=== PATIENT | female | born 1935 | race Caucasian/White ===

== ENCOUNTER 2017-01-15 17:04 | Emergency (ER) | payer MEDICARE, OTHER ==
--- NOTE | 2017-01-15 17:37 | Emergency Department Record ---
History of Present Illness - General Chief complaint: Lower Extremity Pain Stated complaint: L HIP AND LEG PAIN Time Seen by Provider: 01/15/17 17:31 Source: Patient, Family (patient's daughter) Mode of Arrival: Ambulatory Limitations: No limitations - History of Present Illness Initial comments: 81 yo female presents to ED with a 5-hour history of confusion and difficultly with speaking this afternoon. Daughter at the bedside in unsure about the the exact time of symptoms, but received a confused text from the patient at 12:35. Patient reports that she has a headache, has been unable to sleep, and is now having difficulty with word finding and expression. Patient denies any focal weakness on examination. MD Complaint: Other Onset/Timin -: Hour(s) Location: Other History of Same: Yes (with previous medication reaction) Radiation: Distal Severity scale (1-10): 3 Quality: Aching Consistency: Intermittent Improves with: Nothing Worsens with: Nothing Associated Symptoms: Denies other symptoms - Related Data Home Medications Medication Instructions Recorded Confirmed Last Taken Desloratadine [Clarinex] 5 mg PO DAILY 03/07/14 01/15/17 02/15/16 Fluticasone Furoate [Veramyst] 10 gm NS DAILY 03/07/14 01/15/17 02/15/16 Gabapentin [Gabapentin] 1 tab PO TID 03/07/14 01/15/17 02/15/16 Glipizide/Metformin HCl 1 each PO TID 03/07/14 01/15/17 02/15/16 [Glipizide-Metformin 5-500 mg] Irbesartan/Hydrochlorothiazide 1 each PO DAILY 03/07/14 01/15/17 02/15/16 [Irbesartan-Hctz 150-12.5 mg Tb] Levothyroxine Sodium [Synthroid] 1 tab PO DAILY 03/07/14 01/15/17 02/15/16 Metformin HCl [Glucophage] 500 mg PO QPM 03/07/14 01/15/17 02/15/16 Omeprazole [Omeprazole] 1 tab PO QAM 03/07/14 01/15/17 02/15/16 Potassium Chloride [K-Tab ER] 10 meq PO TID 03/07/14 01/15/17 02/15/16 Simvastatin [Simvastatin] 1 tab PO QHS 05/09/1001/15/17 02/15/16 Folic Acid [Folic Acid] 1 mg PO DAILY 01/04/15 01/15/17 02/15/16 Multivit with Calcium,Iron,Min 1 each PO DAILY 01/04/15 01/15/17 02/15/16 [Multiple Vitamins For Women] Anastrozole [Arimidex] 1 mg PO DAILY 06/18/15 01/15/17 02/15/16 Calcium Carb & Citrate/Vit D3 1 each PO DAILY 11/03/15 01/15/17 02/15/16 [Calcium + D3 Er Tablet] Previous Rx's Medication Instructions Recorded Ondansetron [Zofran Odt] 4 mg SL .Q4-6H PRN #12 tab.rapdis 02/15/16 Allergies Allergy/AdvReac Type Severity Reaction Status Date / Time Penicillins Allergy Unknown DIFFICULTY Verified 01/15/17 17:20 BREATHING quinine Allergy Unknown RASH Verified 01/15/17 17:20 Sulfa (Sulfonamide Allergy Unknown RASH Verified 01/15/17 17:20 Antibiotics) Tetracyclines Allergy Unknown RASH Verified 01/15/17 17:20 Travel Screening - Travel/Exposure Within Last 30 Days Have you traveled within the last 30 days?: No Review of Systems Constitutional: Denies: Chills, Fever, Malaise, Night sweats Eyes: Denies: Eye discharge, Eye pain ENT: Denies: Congestion, Ear pain, Epistaxis Respiratory: Denies: Cough, Dyspnea Cardiovascular: Denies: Chest pain, Dyspnea on exertion Endocrine: Denies: Fatigue, Heat or cold intolerance Gastrointestinal: Denies: Abdominal pain, Nausea, Vomiting Genitourinary: Denies: Dysuria, Frequency, Hematuria, Incontinence Musculoskeletal: Denies: Arthralgia, Back pain, Gout, Joint swelling Skin: Denies: Bruising, Change in color Neurological: Reports: Confusion, Headache. Denies: Abnormal gait, Numbness, Seizure Psychiatric: Denies: Anxiety Hematological/Lymphatic: Denies: Anemia, Blood Clots Past Medical History - SOCIAL HISTORY Smoking Status: Former smoker Alcohol Use: None Drug Use: None - RESPIRATORY Hx Respiratory Disorders: Yes Comment:: chronic allergies - CARDIOVASCULAR Hx Cardio Disorders: Yes Hx Hypertension: Yes (on meds good control) - NEURO Hx Neuro Disorders: Yes Hx Dizziness: Yes (occass) Hx Headaches: Yes - GI Hx GI Disorders: Yes Hx Reflux: Yes Hx Nausea/Vomiting: Yes (occass) - Hx Genitourinary Disorders: Yes Hx UTI: Yes (hx) - ENDOCRINE Hx Endocrine Disorders: Yes - MUSCULOSKELETAL Hx Musculoskeletal Disorders: Yes Hx Arthritis: Yes - PSYCH Hx Psych Problems: Yes Hx Depression: Yes - HEMATOLOGY/ONCOLOGY Hx Hematology/Oncology Disorders: Yes Hx Anemia: Yes Hx Bruising: Yes 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 negative: Conjunctival injection, Periorbital swelling, Periorbital tenderness, Scleral icterus - ENT Ear exam: negative: Auricular hematoma, Auricular trauma Nasal Exam: negative: Active bleeding, Discharge, Dried blood, Foreign body Mouth exam: negative: Drooling, Laceration, Muffled voice, Tongue elevation - Neck Neck exam: Normal inspection. negative: Meningismus, Tenderness - Respiratory Respiratory exam: Normal lung sounds bilaterally. negative: Rales, Respiratory distress, Rhonchi, Stridor - Cardiovascular Cardiovascular Exam: Regular rate, Normal rhythm, Normal heart sounds - GI/Abdominal GI/Abdominal exam: Soft. negative: Rebound, Rigid, Tenderness - Rectal Rectal exam: Deferred - exam: Deferred - Extremities Extremities exam: Normal inspection, Full ROM. negative: Calf tenderness, Pedal edema, Tenderness - Back Back exam: Denies: CVA tenderness (R), CVA tenderness (L) - Neurological Neurological exam: Alert, CN II-XII intact, Normal gait, Oriented X3. negative : Motor sensory deficit - Psychiatric Psychiatric exam: Normal affect, Normal mood - Skin Skin exam: Normal color. negative: Abrasion Type of lesion: negative: abrasion Course Vital Signs 01/15/17 17:11 Temperature 98.1 F Pulse Rate 94 H Respiratory 20 Rate Blood Pressure 190/111 Pulse Ox 97 - Reevaluation(s) Reevaluation #1: 01/15/17 17:55 NIH: 2 at most for moderate-sever aphasia Patient is not a tPA candidated both on timing of onset as well as NIH stroke scale of <4. Labs and CT imaging ordered for evaluation. EKG: NSR 82 Normal axis, normal intervals, No acute ST-T wave changes Reevaluation #2: 01/15/17 18:29 CT Brain: Chronic sinusitis, no acute intra-cranial process is present. Will initiate transfer for Neurology evaluation. Reevaluation #3: 01/15/17 18:36 Labs reviewed, TSH and UA pending, labs are otherwise grossly unremarkable for an acute process. Reevaluation #4: 01/15/17 18:46 Case was discussed with Dr. Brizuela, agrees that the patient is not currently a tPA candidate. Will accept transfer for possible CVA and further neurological evaluation. Medical Decision Making - Lab Data Result diagrams: 01/15/17 17:46 01/15/17 17:46 Disposition Disposition: Transfer Clinical Impression: Cerebrovascular accident (CVA) Qualifiers: CVA mechanism: unspecified Qualified Code(s): I63.9 - Cerebral infarction, unspecified Disposition: Acute Care Hospital Transfer Transfer To: [facility] Reason For Transfer: Possible CVA Accepting Physician: Gelacio Time Discussed w/Accepting Physician: 18:48 Condition: (2) Stable Forms: Patient Portal Access
[2017-01-15 17:57] LABS: BASO % 0.2 % (0-6); EOS % 0.4 % (0-6); HEMATOCRIT 37.3 % (35.0-47.0); HEMOGLOBIN 12.8 gm/dl (11.6-16.0); LYMPH % 12.4 % (16-45); MEAN CELL VOLUME 81.1 fl (81-97); MEAN CORPUSCULAR HEMOGLOBIN 27.8 pg (27-33); MEAN CORPUSCULAR HGB CONC 34.3 g/dl (32-36); MEAN PLATELET VOLUME 9.3 fl (7.4-10.4); PLATELET COUNT 254 K/uL (130-400); RED CELL DISTRIBUTION WIDTH 13.5 % (11.5-14.5); WHITE BLOOD COUNT W/O DIFF 8.3 K/uL (4.2-12.2)
[2017-01-15 18:09] LABS: AMMONIA < 8.7 umol/L (9-30)
[2017-01-15 18:34] LABS: ALB/GLOB RATIO 1.6 (1.1-1.8); ALBUMIN 4.2 gm/dL (3.5-5.0); AST/SGOT 21 U/L (14-36); BLOOD UREA NITROGEN 7 mg/dL (7-17); CREATININE 0.6 mg/dL (0.52-1.04); EST GLOMERULAR FILTRATION RATE > 60 ml/min; GLUCOSE,RANDOM 119 mg/dL (70-110); TOTAL PROTEIN 6.8 gm/dL (6.3-8.2)
[2017-01-15 18:35] LABS: ALKALINE PHOSPHATASE 101 U/L (38-126); ALT/SGPT 34 U/L (9-52)
[2017-01-15 18:37] LABS: THYROID STIMULATING HORMONE 2.33 uIU/ml (0.465-4.68)
[2017-01-15] MEDS: ONDANSETRON HCL IV 4 MG/2 ML VIAL IVP ONE (18:37)
[2017-01-15] MEDS: ASPIRIN 81 MG CHEWABLE TABLET PO ONE (18:49)
--- NOTE | 2017-01-17 14:39 | CT SCAN REPORT ---
EXAM: CT SCAN OF THE HEAD HISTORY: PATIENT HAS NAUSEA AND HEADACHE. TECHNIQUE: Serial axial CT scan of the head was performed at 2.5 mm intervals from the base of the skull to the apex without the use of intravenous contrast. Sagittal and coronal reconstructions are provided. FINDINGS: There is mild to moderate parenchymal volume loss identified. There is no mass or mass effect. The white and white differentiation is within normal limits. There is no CT evidence of intra or extraaxial fluid collection to suggest bleeding. The bone windows demonstrate no CT evidence of a fracture or dislocation of the skull. Moderate mucosal thickening is noted within the inferior aspect of the left maxillary sinus suggesting chronic sinusitis. IMPRESSION: 1. PARENCHYMAL VOLUME LOSS IS NOTED WITHOUT CT EVIDENCE OF AN ACUTE INTRACRANIAL PROCESS. 2. MUCOSAL THICKENING WITHIN THE INFERIOR ASPECT OF THE LEFT MAXILLARY SINUS SUGGESTS CHRONIC SINUSITIS. CLINICAL CORRELATION IS RECOMMENDED. JOB NUMBER: [id number] MTDD
== END 2017-01-15 21:45 | disposition short-term general hospital (02) ==
LOC: ER 17:04
DX: I63.9 Cerebral infarction, unspecified (principal); R47.01 Aphasia; R11.0 Nausea; R29.702 NIHSS score 2; I10 Essential (primary) hypertension; Z87.891 Personal history of nicotine dependence
CPT/HCPCS: 99285 ×2; 96374; 82140; 85025; 80053; 84443; 70450; 93005; 93010; J2405

== ENCOUNTER 2017-01-21 19:12 | Emergency (ER) | payer MEDICARE, OTHER ==
[2017-01-21] MEDS ORDERED: 0.9 % SODIUM CHLORIDE 1,000 ML BAG IV ONE (20:05)
--- NOTE | 2017-01-21 20:05 | Emergency Department Record ---
History of Present Illness - General Chief Complaint: Dizziness Stated Complaint: DIZZY,NAUSEA Time Seen by Provider: 01/21/17 19:32 Source: Patient, Family Mode of Arrival: Ambulatory Limitations: No limitations - History of Present Illness Initial Comments: pt feels weak. she has nausea and diarrhea. she does not feel anything like she did when she was transferred recently for stroke like symptoms Onset/Timin -: Days(s) Timing: Gradual onset Description: Nausea Severity: Mild Worsens With: Exertion Associated Symptoms: Other - Joyce Coma Scale Eye Response: (4) Open spontaneously Motor Response: (6) Obeys commands Verbal Response: (5) Oriented Joyce Total: 15 - Related Data Home Medications Medication Instructions Recorded Confirmed Last Taken Desloratadine [Clarinex] 5 mg PO DAILY 03/07/14 01/21/17 02/15/16 Fluticasone Furoate [Veramyst] 10 gm NS DAILY 03/07/14 01/21/17 02/15/16 Gabapentin [Gabapentin] 1 tab PO TID 03/07/14 01/21/17 02/15/16 Glipizide/Metformin HCl 1 each PO TID 03/07/14 01/21/17 02/15/16 [Glipizide-Metformin 5-500 mg] Irbesartan/Hydrochlorothiazide 1 each PO DAILY 03/07/14 01/21/17 02/15/16 [Irbesartan-Hctz 150-12.5 mg Tb] Levothyroxine Sodium [Synthroid] 1 tab PO DAILY 03/07/14 01/21/17 02/15/16 Metformin HCl [Glucophage] 500 mg PO QPM 03/07/14 01/21/17 02/15/16 Omeprazole [Omeprazole] 1 tab PO QAM 03/07/14 01/21/17 02/15/16 Potassium Chloride [K-Tab ER] 10 meq PO TID 03/07/14 01/21/17 02/15/16 Simvastatin [Simvastatin] 1 tab PO QHS 03/07/14 01/21/17 02/15/16 Folic Acid [Folic Acid] 1 mg PO DAILY 01/04/15 01/21/17 02/15/16 Multivit with Calcium,Iron,Min 1 each PO DAILY 01/04/15 01/21/17 02/15/16 [Multiple Vitamins For Women] Anastrozole [Arimidex] 1 mg PO DAILY 06/18/15 01/21/17 02/15/16 Calcium Carb & Citrate/Vit D3 1 each PO DAILY 11/03/15 01/21/17 02/15/16 [Calcium + D3 Er Tablet] Hydrochlorothiazide [Hctz 12.5MG] 12.5 mg PO DAILY 01/21/17 01/21/17 Unknown Previous Rx's Medication Instructions Recorded Ondansetron [Zofran Odt] 4 mg SL .Q4-6H PRN #12 tab.rapdis 02/15/16 Allergies Allergy/AdvReac Type Severity Reaction Status Date / Time Penicillins Allergy Unknown DIFFICULTY Verified 01/15/17 17:20 BREATHING quinine Allergy Unknown RASH Verified 01/15/17 17:20 Sulfa (Sulfonamide Allergy Unknown RASH Verified 01/15/17 17:20 Antibiotics) Tetracyclines Allergy Unknown RASH Verified 01/15/17 17:20 Travel Screening - Travel/Exposure Within Last 30 Days Have you traveled within the last 30 days?: No Review of Systems Reviewed: No additional complaints except as noted below Constitutional: Reports: As per HPI. Denies: Chills, Fever, Malaise, Night sweats, Weakness, Weight change Eyes: Reports: As per HPI. Denies: Eye discharge, Eye pain, Photophobia, Vision change ENT: Reports: As per HPI. Denies: Congestion, Dental pain, Ear pain, Epistaxis , Hearing loss, Throat pain Respiratory: Reports: As per HPI. Denies: Cough, Dyspnea, Hemoptysis, Stridor, Wheezes Cardiovascular: Reports: As per HPI. Denies: Arrhythmia, Chest pain, Dyspnea on exertion, Edema, Murmurs, Orthopnea, Palpitations, Paroxysmal nocturnal dyspnea, Rheumatic Fever, Syncope Endocrine: Reports: As per HPI. Denies: Fatigue, Heat or cold intolerance, Polydipsia, Polyuria Gastrointestinal: Reports: As per HPI. Denies: Abdominal pain, Constipation, Diarrhea, Hematemesis, Hematochezia, Melena, Nausea, Vomiting Genitourinary: Reports: As per HPI. Denies: Abnormal menses, Discharge, Dyspareunia, Dysuria, Frequency, Hematuria, Incontinence, Retention, Urgency Musculoskeletal: Reports: As per HPI. Denies: Arthralgia, Back pain, Gout, Joint swelling, Myalgia, Neck pain Skin: Reports: As per HPI. Denies: Bruising, Change in color, Change in hair/ nails, Lesions, Pruritus, Rash Neurological: Reports: As per HPI. Denies: Abnormal gait, Confusion, Headache, Numbness, Paresthesias, Seizure, Tingling, Tremors, Vertigo, Weakness Psychiatric: Reports: As per HPI. Denies: Anxiety, Auditory hallucinations, Depression, Homicidal thoughts, Suicidal thoughts, Visual hallucinations Hematological/Lymphatic: Reports: As per HPI. Denies: Anemia, Blood Clots, Easy bleeding, Easy bruising, Swollen glands Past Medical History - SOCIAL HISTORY Smoking Status: Former smoker Alcohol Use: None Drug Use: None - RESPIRATORY Hx Respiratory Disorders: Yes Comment:: chronic allergies - CARDIOVASCULAR Hx Cardio Disorders: Yes Hx Hypertension: Yes (on meds good control) - NEURO Hx Neuro Disorders: Yes Hx Dizziness: Yes (occass) Hx Headaches: Yes - GI Hx GI Disorders: Yes Hx Reflux: Yes Hx Nausea/Vomiting: Yes (occass) - Hx Genitourinary Disorders: Yes Hx UTI: Yes (hx) - ENDOCRINE Hx Endocrine Disorders: Yes - MUSCULOSKELETAL Hx Musculoskeletal Disorders: Yes Hx Arthritis: Yes - PSYCH Hx Psych Problems: Yes Hx Depression: Yes - HEMATOLOGY/ONCOLOGY Hx Hematology/Oncology Disorders: Yes Hx Anemia: Yes Hx Bruising: Yes Hx Cancer: Yes (lymphoma non hodgkins breast cancer) Hx Chemotherapy: Yes (rituxin) Hx Blood Transfusions: Yes Family Medical History Any Significant Family History?: Yes Hx HTN: Father Physical Exam - General General Appearance: Alert, Oriented x3, Cooperative, Mild distress - Head Head exam: Normal inspection - Eye Eye exam: Normal appearance, PERRL, EOMI Pupils: Normal accommodation - ENT ENT exam: Normal exam, Mucous membranes moist, Normal external ear exam, Normal orophraynx Ear exam: Normal external inspection. negative: External canal tenderness Nasal Exam: Normal inspection. negative: Discharge, Sinus tenderness Mouth exam: Normal external inspection, Tongue normal Teeth exam: Normal inspection. negative: Dental caries Throat exam: Normal inspection. negative: Tonsillar erythema, Tonsillar exudate - Neck Neck exam: Normal inspection, Full ROM. negative: Tenderness - Respiratory Respiratory exam: Normal lung sounds bilaterally. negative: Respiratory distress - Cardiovascular Cardiovascular Exam: Regular rate, Normal rhythm, Normal heart sounds - GI/Abdominal GI/Abdominal exam: Soft, Normal bowel sounds. negative: Tenderness - Rectal Rectal exam: Deferred - exam: Deferred - Extremities Extremities exam: Normal inspection, Full ROM, Normal capillary refill. negative: Tenderness - Back Back exam: Reports: Normal inspection, Full ROM. Denies: Muscle spasm, Rash noted, Tenderness - Neurological Neurological exam: Alert, CN II-XII intact, Normal gait, Oriented X3 - Psychiatric Psychiatric exam: Normal affect, Normal mood - Skin Skin exam: Dry, Intact, Normal color, Warm Course Vital Signs 01/21/17 19:30 Temperature 98.4 F Pulse Rate [ 91 H Pulse Ox Probe] Respiratory 20 Rate Blood Pressure 208/94 [Left Arm] Pulse Ox 96 - Reevaluation(s) Reevaluation #1: 01/21/17 22:06 pt feels much better. family states she has done 180 degree turn about. Medical Decision Making - Lab Data Result diagrams: 01/21/17 19:30 01/21/17 19:30 Disposition Disposition: Discharge Clinical Impression: Hypokalemia, Weakness Diarrhea Qualifiers: Diarrhea type: unspecified type Qualified Code(s): R19.7 - Diarrhea, unspecified Disposition: Home, Self-Care Condition: (1) Good Instructions: Weakness (ED), Hypokalemia (ED), Acute Diarrhea (ED) Additional Instructions: follow up with family doctor tomorrow. return sooner if worse Forms: Patient Portal Access
[2017-01-21] MEDS ORDERED: ONDANSETRON HCL IV 4 MG/2 ML VIAL IVP ONE (20:10)
[2017-01-21 20:27] LABS: BASO % 0.2 % (0-6); EOS % 2.3 % (0-6); GRAN % 67.2 % (47-80); HEMATOCRIT 36.8 % (35.0-47.0); HEMOGLOBIN 12.8 gm/dl (11.6-16.0); LYMPH % 21.1 % (16-45); MEAN CELL VOLUME 81.6 fl (81-97); MEAN CORPUSCULAR HEMOGLOBIN 28.4 pg (27-33); MEAN CORPUSCULAR HGB CONC 34.8 g/dl (32-36); MEAN PLATELET VOLUME 9.5 fl (7.4-10.4); MONO % 9.2 % (0-9); PLATELET COUNT 271 K/uL (130-400); RED BLOOD COUNT 4.51 M/uL (3.80-5.40); RED CELL DISTRIBUTION WIDTH 13.6 % (11.5-14.5); WHITE BLOOD COUNT W/O DIFF 8.1 K/uL (4.2-12.2)
[2017-01-21 20:41] LABS: ANION GAP 8.9 (7-16); BLOOD UREA NITROGEN 7 mg/dL (7-17); CARBON DIOXIDE 27.1 mmol/L (22-30); CREATININE 0.7 mg/dL (0.52-1.04); EST GLOMERULAR FILTRATION RATE > 60 ml/min
[2017-01-21] MEDS ORDERED: CLONIDINE HCL 0.1 MG TABLET PO ONE (20:41)
[2017-01-21 20:42] LABS: ALB/GLOB RATIO 1.6 (1.1-1.8); ALBUMIN 4.2 gm/dL (3.5-5.0); ALKALINE PHOSPHATASE 91 U/L (38-126); ALT/SGPT 35 U/L (9-52); AST/SGOT 24 U/L (14-36); TOTAL PROTEIN 6.8 gm/dL (6.3-8.2)
[2017-01-21 20:44] LABS: GLUCOSE,RANDOM 141 mg/dL (70-110)
[2017-01-21 20:45] LABS: URINE APPEARANCE CLEAR; URINE BILIRUBIN NEGATIVE (NEGATIVE); URINE BLOOD TRACE-I (NEGATIVE); URINE COLOR YELLOW; URINE GLUCOSE (UA) NEGATIVE (NEGATIVE); URINE KETONE NEGATIVE (NEGATIVE); URINE LEUKOCYTE ESTERASE SMALL (NEGATIVE); URINE NITRITE NEGATIVE (NEGATIVE); URINE PROTEIN NEGATIVE (NEGATIVE); URINE UROBILINOGEN 0.2 E.U./dL (0.20 - 1.00)
[2017-01-21 20:45] LABS: BILIRUBIN,TOTAL 1.34 mg/dL (0.2-1.3)
[2017-01-21 21:04] LABS: URINE BACTERIA NONE SEEN; URINE EPITHELIAL CELLS 0 - 2 (FEW); URINE RBC 0 - 2 (NONE SEEN); URINE WBC 0 - 2 (0-2/hpf)
[2017-01-21] MEDS ORDERED: POTASSIUM CHLORIDE 20 MEQ TABLET PO ONE (21:18)
== END 2017-01-21 22:30 | disposition home or self-care (01) ==
LOC: ER 19:12
DX: E87.6 Hypokalemia (principal); R53.1 Weakness; R19.7 Diarrhea, unspecified; R11.0 Nausea; R42 Dizziness and giddiness; I10 Essential (primary) hypertension; Z87.891 Personal history of nicotine dependence
CPT/HCPCS: 80053; 81001; 83880; 84484; 85025; 96374; 99284; J2405; J7030

== ENCOUNTER 2017-05-24 20:12 | Emergency (ER) | payer MEDICARE, OTHER ==
--- NOTE | 2017-05-24 20:47 | Emergency Department Record ---
History of Present Illness - General Chief complaint: Nausea, Vomiting, Diarrhea Stated complaint: NAUSEA, THINKS SHE MIGHT HAVE FOOD POISONING Time Seen by Provider: 05/24/17 20:40 Source: Patient Mode of Arrival: Ambulatory Limitations: No limitations - History of Present Illness Initial comments: 81 yo female presents to ED with a 6-hour history of nausea symptoms, reports that she "may have food poisoning". Patient reports eating a hamburger around 14:00 this afternoon, reports that her hamburger may have been undercooked. Patient denies vomiting symptoms or abdominal pain symptoms, but does report distension. Patient denies change in stools or constipation symptoms. Patient denies fevers, chills, or other GI symptoms. MD complaint: Nausea Onset/Timin -: Hour(s) Associated Abdominal Pain: No Consistency: Intermittent Improves with: None Worsens with: None Associated Symptoms: Nausea/vomiting - Related Data Home Medications Medication Instructions Recorded Confirmed Last Taken Desloratadine [Clarinex] 5 mg PO DAILY 03/07/14 01/21/17 02/15/16 Fluticasone Furoate [Veramyst] 10 gm NS DAILY 03/07/14 01/21/17 02/15/16 Gabapentin [Gabapentin] 1 tab PO TID 03/07/14 01/21/17 02/15/16 Glipizide/Metformin HCl 1 each PO TID 03/07/14 01/21/17 02/15/16 [Glipizide-Metformin 5-500 mg] Irbesartan/Hydrochlorothiazide 1 each PO DAILY 03/07/14 01/21/17 02/15/16 [Irbesartan-Hctz 150-12.5 mg Tb] Levothyroxine Sodium [Synthroid] 1 tab PO DAILY 03/07/14 01/21/17 02/15/16 Metformin HCl [Glucophage] 500 mg PO QPM 03/07/14 01/21/17 02/15/16 Omeprazole [Omeprazole] 1 tab PO QAM 03/07/14 01/21/17 02/15/16 Potassium Chloride [K-Tab ER] 10 meq PO TID 03/07/14 01/21/17 02/15/16 Simvastatin [Simvastatin] 1 tab PO QHS 03/07/14 01/21/17 02/15/16 Folic Acid [Folic Acid] 1 mg PO DAILY 01/04/15 01/21/17 02/15/16 Multivit with Calcium,Iron,Min 1 each PO DAILY 01/04/15 01/21/17 02/15/16 [Multiple Vitamins For Women] Anastrozole [Arimidex] 1 mg PO DAILY 06/18/15 01/21/17 02/15/16 Calcium Carb, Citrate/Vit D3 1 each PO DAILY 11/03/15 01/21/17 02/15/16 [Calcium + D3 Er Tablet] Hydrochlorothiazide [Hctz 12.5MG] 12.5 mg PO DAILY 01/21/17 01/21/17 Unknown Previous Rx's Medication Instructions Recorded Ondansetron [Zofran Odt] 4 mg SL .Q4-6H PRN #12 tab.[email or web address] 02/15/16 Ondansetron [Zofran Odt] 4 mg PO Q8H PRN #20 tab.[email or web address] 05/24/17 Allergies Allergy/AdvReac Type Severity Reaction Status Date / Time Penicillins Allergy Unknown DIFFICULTY Verified 01/15/17 17:20 BREATHING quinine Allergy Unknown RASH Verified 01/15/17 17:20 Sulfa (Sulfonamide Allergy Unknown RASH Verified 01/15/17 17:20 Antibiotics) Tetracyclines Allergy Unknown RASH Verified 01/15/17 17:20 Travel Screening - Travel/Exposure Within Last 30 Days Have you traveled within the last 30 days?: No - Travel Symptoms Symptom Screening: None Review of Systems Constitutional: Denies: Chills, Fever, Malaise, Night sweats Eyes: Denies: Eye discharge, Eye pain ENT: Denies: Congestion, Ear pain, Epistaxis Respiratory: Denies: Cough, Dyspnea Cardiovascular: Denies: Chest pain, Dyspnea on exertion Endocrine: Denies: Fatigue, Heat or cold intolerance Gastrointestinal: Reports: Nausea. Denies: Abdominal pain, Constipation, Vomiting Genitourinary: Denies: Incontinence, Retention Musculoskeletal: Denies: Arthralgia, Back pain, Gout, Joint swelling Skin: Denies: Bruising, Change in color Neurological: Denies: Abnormal gait, Confusion, Headache, Seizure Psychiatric: Denies: Anxiety Hematological/Lymphatic: Denies: Anemia, Blood Clots Past Medical History - SOCIAL HISTORY Smoking Status: Former smoker - RESPIRATORY Hx Respiratory Disorders: Yes Comment:: chronic allergies - CARDIOVASCULAR Hx Cardio Disorders: Yes Hx Hypertension: Yes (on meds good control) - NEURO Hx Neuro Disorders: Yes Hx Dizziness: Yes (occass) Hx Headaches: Yes - GI Hx GI Disorders: Yes Hx Reflux: Yes Hx Nausea/Vomiting: Yes (occass) - Hx Genitourinary Disorders: Yes Hx UTI: Yes (hx) - ENDOCRINE Hx Endocrine Disorders: Yes Hx Thyroid Disease: Yes (low) - MUSCULOSKELETAL Hx Musculoskeletal Disorders: Yes Hx Arthritis: Yes - PSYCH Hx Psych Problems: Yes Hx Depression: Yes - HEMATOLOGY/ONCOLOGY Hx Hematology/Oncology Disorders: Yes Hx Anemia: Yes Hx Bruising: Yes 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 negative: Conjunctival injection, Periorbital swelling, Periorbital tenderness, Scleral icterus - ENT Ear exam: negative: Auricular hematoma, Auricular trauma Nasal Exam: negative: Active bleeding, Discharge, Dried blood, Foreign body Mouth exam: negative: Drooling, Laceration, Muffled voice, Tongue elevation - Neck Neck exam: Normal inspection. negative: Meningismus, Tenderness - Respiratory Respiratory exam: Normal lung sounds bilaterally. negative: Rales, Respiratory distress, Rhonchi, Stridor - Cardiovascular Cardiovascular Exam: Regular rate, Normal rhythm, Normal heart sounds - GI/Abdominal GI/Abdominal exam: Soft, Distended. negative: Rebound, Rigid, Tenderness - Rectal Rectal exam: Deferred - exam: Deferred - Extremities Extremities exam: Normal inspection. negative: Calf tenderness, Pedal edema, Tenderness - Back Back exam: Denies: CVA tenderness (R), CVA tenderness (L) - Neurological Neurological exam: Alert, Normal gait, Oriented X3 - Psychiatric Psychiatric exam: Normal affect, Normal mood - Skin Skin exam: Normal color. negative: Abrasion Type of lesion: negative: abrasion Course Vital Signs 05/24/17 20:25 Temperature 98.1 F Pulse Rate 92 H Respiratory 16 Rate Blood Pressure 172/88 Pulse Ox 96 - Reevaluation(s) Reevaluation #1: 05/24/17 20:45 Patient seen and examined, denies abdominal pain or vomiting symptoms. Will obtain AAS to exclude obstruction, EKG to exclude ACS as a cause of patient's nausea symptoms (patient denies CP/CHELI). Will administer IVFs and antiemetics and re-evaluate. Reevaluation #2: 05/24/17 20:50 EKG: NSR 82 Normal axis, Normal intervals No acute ST-T wave changes Reevaluation #3: 05/24/17 21:40 Labs reviewed and are grossly unremarkable for an acute process except for glucose of 231. Reevaluation #4: 05/24/17 21:44 AAS: Nonspecific bowel gas pattern, chest apepars negative, degenerative changes to the spine. Patient reassessed and reports improvement in her nausea symptoms. Patient was updated on all results and her repeat abdominal examination is benign. Patient appears stable for discharge at this time with her daughter with instructions to return for any worsening of her symptoms. Medical Decision Making - Lab Data Result diagrams: 05/24/17 20:58 05/24/17 20:58 Disposition Disposition: Discharge Clinical Impression: Nausea Disposition: Home, Self-Care Condition: (2) Stable Instructions: Acute Nausea and Vomiting (ED) Additional Instructions: Return to ED if your symptoms worsen or if you have any concerns. Zofran as directed. Follow-up with your family doctor in 1-3 days as directed. Prescriptions: Ondansetron [Zofran Odt] 4 mg PO Q8H PRN #20 tab.rapdis PRN Reason: Nausea Forms: Patient Portal Access Time of Disposition: 21:49 Quality - Quality Measures Quality Measures: N/A - Blood Pressure Screening Blood Pressure Classification: Pre-Hypertensive BP Reading Systolic Measurement: 172 Diastolic Measurement: 88 Screening for High Blood Pressure: < Pre-Hypertensive BP, F/U Documented > [ [id number]] Pre-Hypertensive Follow-up Interventions: Referral to alternative/primary care provider.
[2017-05-24] MEDS: 0.9 % SODIUM CHLORIDE 1000ML 1,000 ML IV SCH (20:57)
[2017-05-24] MEDS: ONDANSETRON HCL IV 4 MG/2 ML VIAL IVP ONE (20:57)
[2017-05-24 21:15] LABS: BASO % 0.3 % (0-6); EOS % 2.3 % (0-6); GRAN % 74.9 % (47-80); HEMATOCRIT 35.9 % (35.0-47.0); HEMOGLOBIN 12.1 gm/dl (11.6-16.0); LYMPH % 14.3 % (16-45); MEAN CELL VOLUME 82.9 fl (81-97); MEAN CORPUSCULAR HEMOGLOBIN 27.9 pg (27-33); MEAN CORPUSCULAR HGB CONC 33.7 g/dl (32-36); MEAN PLATELET VOLUME 9.2 fl (7.4-10.4); MONO % 8.2 % (0-9); PLATELET COUNT 247 K/uL (130-400); RED BLOOD COUNT 4.33 M/uL (3.80-5.40); RED CELL DISTRIBUTION WIDTH 13.5 % (11.5-14.5); WHITE BLOOD COUNT W/O DIFF 6.9 K/uL (4.2-12.2)
[2017-05-24 21:24] LABS: ALB/GLOB RATIO 1.6 (1.1-1.8); ALBUMIN 3.8 gm/dL (3.5-5.0); ALKALINE PHOSPHATASE 83 U/L (38-126); ALT/SGPT 49 U/L (9-52); ANION GAP 10.2 (7-16); AST/SGOT 29 U/L (14-36); BLOOD UREA NITROGEN 7 mg/dL (7-17); CARBON DIOXIDE 25.8 mmol/L (22-30); CREATININE 0.6 mg/dL (0.52-1.04); EST GLOMERULAR FILTRATION RATE > 60 ml/min; GLUCOSE,RANDOM 231 mg/dL (70-110); LIPASE 127 U/L (23-300); TOTAL PROTEIN 6.2 gm/dL (6.3-8.2)
[2017-05-24] MEDS: ONDANSETRON 4 MG ODT TABLET SL ONE (21:59)
--- NOTE | 2017-05-27 14:18 | RADIOLOGY REPORT ---
EXAM: ACUTE ABDOMEN SERIES WHICH INCLUDES A PA CHEST HISTORY: ABDOMINAL PAIN AND NAUSEA FOR A DAY. TECHNIQUE: PA view of the chest and supine and upright views of the abdomen were obtained. Comparison: Two view chest 09/16/15. No prior abdomen series. FINDINGS: CHEST: The heart size is normal. The lungs appear clear with no definite acute infiltrate seen. No pleural effusion or pneumothorax evident. ABDOMEN: Nonspecific bowel gas pattern with a few air fluid levels particularly in the right side of the abdomen on the upright view. No free air identified. Degenerative change in the spine. Vascular calcification evident. Mild thoracolumbar curve to the left. IMPRESSION: 1. A FEW NONSPECIFIC AIR FLUID LEVELS IN THE RIGHT MID ABDOMEN. 2. NO FREE AIR EVIDENT. 3. THE LUNGS ARE CLEAR. JOB NUMBER: [id number] MTDD
== END 2017-05-24 22:01 | disposition home or self-care (01) ==
LOC: ER 20:12
DX: R11.2 Nausea with vomiting, unspecified (principal); R19.7 Diarrhea, unspecified; R10.9 Unspecified abdominal pain; I10 Essential (primary) hypertension; Z87.891 Personal history of nicotine dependence
CPT/HCPCS: 99284 ×2; 96374; 96361; 83690; 85025; 80053; 74022; 93005; 93010; J2405; J7030

== ENCOUNTER 2017-06-21 15:57 | Emergency (ER) | payer MEDICARE, OTHER ==
[2017-06-21] MEDS: PROMETHAZINE HCL 6.25 MG in 0.9 % SODIUM CHLORIDE 100ML 100 ML IVPB ONE (17:12)
[2017-06-21] MEDS: 0.9 % SODIUM CHLORIDE 1,000 ML BAG IV ONE (17:12)
[2017-06-21 17:24] LABS: HEMATOCRIT 37.1 % (35.0-47.0); MEAN CELL VOLUME 81.5 fl (81-97); MEAN CORPUSCULAR HEMOGLOBIN 28.6 pg (27-33); MEAN PLATELET VOLUME 9.5 fl (7.4-10.4); PLATELET COUNT 263 K/uL (130-400); RED BLOOD COUNT 4.55 M/uL (3.80-5.40); RED CELL DISTRIBUTION WIDTH 13.3 % (11.5-14.5); WHITE BLOOD COUNT W/O DIFF 7.2 K/uL (4.2-12.2)
[2017-06-21 17:37] LABS: ALB/GLOB RATIO 1.6 (1.1-1.8); ALBUMIN 4.1 gm/dL (3.5-5.0); ALKALINE PHOSPHATASE 101 U/L (38-126); ALT/SGPT 52 U/L (9-52); AST/SGOT 28 U/L (14-36); BILIRUBIN,TOTAL 1.67 mg/dL (0.2-1.3); BLOOD UREA NITROGEN 5 mg/dL (7-17); CREATININE 0.6 mg/dL (0.52-1.04); EST GLOMERULAR FILTRATION RATE > 60 ml/min; GLUCOSE,RANDOM 230 mg/dL (70-110); TOTAL PROTEIN 6.7 gm/dL (6.3-8.2)
[2017-06-21 18:17] LABS: URINE APPEARANCE SL CLOUDY; URINE BILIRUBIN NEGATIVE (NEGATIVE); URINE BLOOD TRACE-I (NEGATIVE); URINE COLOR YELLOW; URINE KETONE NEGATIVE (NEGATIVE); URINE LEUKOCYTE ESTERASE SMALL (NEGATIVE); URINE NITRITE NEGATIVE (NEGATIVE); URINE PROTEIN NEGATIVE (NEGATIVE); URINE UROBILINOGEN 0.2 E.U./dL (0.20 - 1.00)
[2017-06-21 18:31] LABS: URINE BACTERIA NONE SEEN; URINE EPITHELIAL CELLS 0 - 2 (FEW); URINE RBC NONE SEEN (NONE SEEN)
--- NOTE | 2017-06-21 18:46 | Emergency Department Record ---
History of Present Illness - General Chief complaint: Nausea, Vomiting, Diarrhea Stated complaint: NAUSEA Time Seen by Provider: 06/21/17 16:50 Source: Patient Mode of Arrival: Ambulatory Limitations: No limitations - History of Present Illness Initial comments: pt c/o n/d. she tried zofran at home with no relief MD complaint: Diarrhea, Nausea -: Awoke with symptoms Associated Abdominal Pain: Yes Location: LUQ, RUQ, Epigastric Radiation: None Consistency: Intermittent Improves with: None Worsens with: None Associated Symptoms: Malaise, Nausea/vomiting - Related Data Home Medications Medication Instructions Recorded Confirmed Last Taken Glipizide/Metformin HCl 1 each PO DAILY 06/21/17 06/21/17 Unknown [Glipizide-Metformin 2.5-250 mg] Previous Rx's Medication Instructions Recorded Ondansetron [Zofran Odt] 4 mg PO Q8H PRN #20 tab.rapdis 05/24/17 Ciprofloxacin HCl [Cipro] 500 mg PO Q12HR #6 tablet 06/21/17 Allergies Allergy/AdvReac Type Severity Reaction Status Date / Time Penicillins Allergy Unknown DIFFICULTY Verified 06/21/17 16:33 BREATHING quinine Allergy Unknown RASH Verified 06/21/17 16:33 Sulfa (Sulfonamide Allergy Unknown RASH Verified 06/21/17 16:33 Antibiotics) Tetracyclines Allergy Unknown RASH Verified 06/21/17 16:33 Travel Screening - Travel/Exposure Within Last 30 Days Have you traveled within the last 30 days?: No Review of Systems Reviewed: No additional complaints except as noted below Constitutional: Reports: As per HPI. Denies: Chills, Fever, Malaise, Night sweats, Weakness, Weight change Eyes: Reports: As per HPI. Denies: Eye discharge, Eye pain, Photophobia, Vision change ENT: Reports: As per HPI. Denies: Congestion, Dental pain, Ear pain, Epistaxis , Hearing loss, Throat pain Respiratory: Reports: As per HPI. Denies: Cough, Dyspnea, Hemoptysis, Stridor, Wheezes Cardiovascular: Reports: As per HPI. Denies: Arrhythmia, Chest pain, Dyspnea on exertion, Edema, Murmurs, Orthopnea, Palpitations, Paroxysmal nocturnal dyspnea, Rheumatic Fever, Syncope Endocrine: Reports: As per HPI. Denies: Fatigue, Heat or cold intolerance, Polydipsia, Polyuria Gastrointestinal: Reports: As per HPI. Denies: Abdominal pain, Constipation, Diarrhea, Hematemesis, Hematochezia, Melena, Nausea, Vomiting Genitourinary: Reports: As per HPI. Denies: Abnormal menses, Discharge, Dyspareunia, Dysuria, Frequency, Hematuria, Incontinence, Retention, Urgency Musculoskeletal: Reports: As per HPI. Denies: Arthralgia, Back pain, Gout, Joint swelling, Myalgia, Neck pain Skin: Reports: As per HPI. Denies: Bruising, Change in color, Change in hair/ nails, Lesions, Pruritus, Rash Neurological: Reports: As per HPI. Denies: Abnormal gait, Confusion, Headache, Numbness, Paresthesias, Seizure, Tingling, Tremors, Vertigo, Weakness Psychiatric: Reports: As per HPI. Denies: Anxiety, Auditory hallucinations, Depression, Homicidal thoughts, Suicidal thoughts, Visual hallucinations Hematological/Lymphatic: Reports: As per HPI. Denies: Anemia, Blood Clots, Easy bleeding, Easy bruising, Swollen glands Past Medical History - SOCIAL HISTORY Smoking Status: Former smoker Alcohol Use: None Drug Use: None - RESPIRATORY Hx Respiratory Disorders: Yes Comment:: chronic allergies - CARDIOVASCULAR Hx Cardio Disorders: Yes Hx Hypertension: Yes - NEURO Hx Neuro Disorders: Yes Hx Dizziness: Yes Hx Headaches: Yes - GI Hx GI Disorders: Yes Hx Reflux: Yes Hx Nausea/Vomiting: Yes - Hx Genitourinary Disorders: Yes Hx UTI: Yes - ENDOCRINE Hx Endocrine Disorders: Yes Hx Diabetes: Yes (type 2) Hx Thyroid Disease: Yes (low) - MUSCULOSKELETAL Hx Musculoskeletal Disorders: Yes Hx Arthritis: Yes - PSYCH Hx Psych Problems: Yes Hx Depression: Yes - HEMATOLOGY/ONCOLOGY Hx Hematology/Oncology Disorders: Yes Hx Anemia: Yes Hx Bruising: Yes 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 negative: External canal tenderness Nasal Exam: Normal inspection. negative: Discharge, Sinus tenderness Mouth exam: Normal external inspection, Tongue normal Teeth exam: Normal inspection. negative: Dental caries Throat exam: Normal inspection. negative: Tonsillar erythema, Tonsillar exudate - Neck Neck exam: Normal inspection, Full ROM. negative: Tenderness - Respiratory Respiratory exam: Normal lung sounds bilaterally. negative: Respiratory distress - Cardiovascular Cardiovascular Exam: Regular rate, Normal rhythm, Normal heart sounds - GI/Abdominal GI/Abdominal exam: Soft, Normal bowel sounds. negative: Tenderness - Rectal Rectal exam: Deferred - exam: Deferred - Extremities Extremities exam: Normal inspection, Full ROM, Normal capillary refill. negative: Tenderness - Back Back exam: Reports: Normal inspection, Full ROM. Denies: Muscle spasm, Rash noted, Tenderness - Neurological Neurological exam: Alert, Normal gait, Oriented X3, Reflexes normal - Psychiatric Psychiatric exam: Normal affect, Normal mood - Skin Skin exam: Dry, Intact, Normal color, Warm Course Vital Signs 06/21/17 16:37 Temperature 98.5 F Pulse Rate 99 H Respiratory 20 Rate Blood Pressure 172/86 Pulse Ox 100 - Reevaluation(s) Reevaluation #1: 06/21/17 18:43 pt feels much better. Medical Decision Making - Lab Data Result diagrams: 06/21/17 17:16 06/21/17 17:16 Lab Results 06/21/17 06/21/17 06/21/17 Range/Units 17:16 17:16 18:08 WBC 7.2 (4.2-12.2) K/uL RBC 4.55 (3.80-5.40) M/uL Hgb 13.0 (11.6-16.0) gm/dl Hct 37.1 (35.0-47.0) % MCV 81.5 (81-97) fl MCH 28.6 (27-33) pg MCHC 35.0 (32-36) g/dl RDW 13.3 (11.5-14.5) % Plt Count 263 (130-400) K/uL MPV 9.5 (7.4-10.4) fl Neutrophils % 78.0 (47-80) % Eosinophils % Not Reportable Basophils % Not Reportable Lymphocytes 16.0 (16-45) % Monocytes 5.0 (0-9) % Eosinophil Count 1.0 (0-6) % Sodium 133 L (136-145) mmol/L Potassium 3.3 L (3.5-5.1) mmol/L Chloride 98 (98-107) mmol/L Carbon Dioxide 25.0 (22-30) mmol/L Anion Gap 10.0 (7-16) BUN 5 L (7-17) mg/dL Creatinine 0.6 (0.52-1.04) mg/dL Estimated GFR > 60 ml/min Random Glucose 230 H (70-110) mg/dL Calcium 10.0 (8.5-10.1) mg/dL Total Bilirubin 1.67 H (0.2-1.3) mg/dL AST 28 (14-36) U/L ALT 52 (9-52) U/L Alkaline Phosphatase 101 (38-126) U/L Total Protein 6.7 (6.3-8.2) gm/dL Albumin 4.1 (3.5-5.0) gm/dL Globulin 2.6 (1.4-4.8) gm/dL Albumin/Globulin Ratio 1.6 (1.1-1.8) Urine Color Yellow Urine Appearance Sl cloudy Urine pH 7.0 (5.0-8.0) Ur Specific [place] 1.015 (1.002-1.030) Urine Protein Negative (NEGATIVE) Urine Glucose (UA) 250 mg/dl H (NEGATIVE) Urine Ketones Negative (NEGATIVE) Urine Blood Trace-i (NEGATIVE) Urine Nitrite Negative (NEGATIVE) Urine Bilirubin Negative (NEGATIVE) Urine Urobilinogen 0.2 (0.20 - 1.00) E.U./dL Ur Leukocyte Esterase Small H (NEGATIVE) Urine RBC None seen (NONE SEEN) Urine WBC 3 - 5 (0-2/hpf) Ur Epithelial Cells 0 - 2 (FEW) Urine Bacteria None seen Disposition Disposition: Discharge Clinical Impression: Nausea Diarrhea Qualifiers: Diarrhea type: unspecified type Qualified Code(s): R19.7 - Diarrhea, unspecified UTI (urinary tract infection) Qualifiers: Urinary tract infection type: acute cystitis Hematuria presence: without hematuria Qualified Code(s): N30.00 - Acute cystitis without hematuria Disposition: Home, Self-Care Condition: (1) Good Instructions: Acute Nausea and Vomiting (ED), Urinary Tract Infection in Women (ED) Additional Instructions: follow up with family doctor. return sooner if worse. dont take zofran when taking cipro Prescriptions: Ciprofloxacin HCl [Cipro] 500 mg PO Q12HR #6 tablet Forms: Patient Portal Access Quality - Quality Measures Quality Measures: N/A - Blood Pressure Screening Does Patient Have Any of the Following: No Blood Pressure Classification: Pre-Hypertensive BP Reading Systolic Measurement: 172 Diastolic Measurement: 86 Screening for High Blood Pressure: < Pre-Hypertensive BP, F/U Documented > [ G8950] Pre-Hypertensive Follow-up Interventions: Follow-up with rescreen every year.
[2017-06-21] MEDS ORDERED: CIPROFLOXACIN HCL 500 MG TABLET PO ONE (19:23)
== END 2017-06-21 19:10 | disposition home or self-care (01) ==
LOC: ER 15:57
DX: R11.2 Nausea with vomiting, unspecified (principal); R19.7 Diarrhea, unspecified; R53.81 Other malaise; N30.00 Acute cystitis without hematuria
CPT/HCPCS: 80053; 81001; 85027; 96361; 96374; 99284; J2550; J7030

== ENCOUNTER 2017-12-04 20:12 | Observation (INO) | payer MEDICARE, OTHER ==
[2017-12-04] MEDS ORDERED: ASPIRIN 81 MG CHEWABLE TABLET PO ONE (20:46)
[2017-12-04 20:58] LABS: BASO % 0.3 % (0-6); GRAN % 69.9 % (47-80); HEMATOCRIT 37.9 % (35.0-47.0); HEMOGLOBIN 12.9 gm/dl (11.6-16.0); LYMPH % 21.6 % (16-45); MEAN CELL VOLUME 83.1 fl (81-97); MEAN CORPUSCULAR HEMOGLOBIN 28.3 pg (27-33); MEAN PLATELET VOLUME 8.7 fl (7.4-10.4); MONO % 8.2 % (0-9); PLATELET COUNT 246 K/uL (130-400); RED BLOOD COUNT 4.56 M/uL (3.80-5.40); RED CELL DISTRIBUTION WIDTH 13.6 % (11.5-14.5); WHITE BLOOD COUNT W/O DIFF 7.4 K/uL (4.2-12.2)
[2017-12-04 21:15] LABS: ALBUMIN 4.3 g/dL (4.0-5.0); ALKALINE PHOSPHATASE 78 U/L (35-104); ALT/SGPT 17 U/L (<33); AST/SGOT 19 U/L (10.0-35.0)
[2017-12-04 21:16] LABS: ALB/GLOB RATIO 1.8 (1.1-1.8); BLOOD UREA NITROGEN 8 mg/dL (8-23); CREATINE PHOSPHOKINASE 21 U/L (26-192); CREATININE 0.6 mg/dL (0.5-0.9); EST GLOMERULAR FILTRATION RATE > 60 mL/min; GLUCOSE,RANDOM 188 mg/dL (74-109); TOTAL PROTEIN 6.7 g/dL (6.6-8.7)
[2017-12-04] MEDS ORDERED: POTASSIUM CHLORIDE 20 MEQ TABLET PO ONE (21:47)
[2017-12-04] MEDS ORDERED: ONDANSETRON HCL IV 4 MG/2 ML VIAL IVP ONE (22:06)
[2017-12-04 22:12] LABS: URINE APPEARANCE CLEAR; URINE BILIRUBIN NEGATIVE (NEGATIVE); URINE BLOOD TRACE-I (NEGATIVE); URINE COLOR YELLOW; URINE GLUCOSE (UA) NEGATIVE (NEGATIVE); URINE KETONE NEGATIVE (NEGATIVE); URINE LEUKOCYTE ESTERASE SMALL (NEGATIVE); URINE NITRITE NEGATIVE (NEGATIVE); URINE PROTEIN NEGATIVE (NEGATIVE); URINE UROBILINOGEN 0.2 E.U./dL (0.20 - 1.00)
[2017-12-04 22:27] LABS: URINE BACTERIA NONE SEEN; URINE EPITHELIAL CELLS 0 - 2 (FEW); URINE RBC 0 - 2 (NONE SEEN); URINE WBC 0 - 2 (0-2/hpf)
--- NOTE | 2017-12-04 23:02 | Emergency Department Record ---
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 she also had dizziness and nausea. MD Complaint: Chest pain Onset/Timin -: Hour(s) Onset: During rest Severity: Mild Consistency: Now resolved Worsens With: Nothing Anginal Symptoms: Nausea - Related Data Home Medications Medication Instructions Recorded Confirmed Last Taken Liraglutide [Victoza 2-Robert] 0.6 unit SQ DAILY 12/04/17 12/04/17 Unknown Previous Rx's Medication Instructions Recorded Ondansetron [Zofran Odt] 4 mg PO Q8H PRN #20 tab.rapdis 05/24/17 Allergies Allergy/AdvReac Type Severity Reaction Status Date / Time Penicillins Allergy Unknown DIFFICULTY Verified 06/21/17 16:33 BREATHING quinine Allergy Unknown RASH Verified 06/21/17 16:33 Sulfa (Sulfonamide Allergy Unknown RASH Verified 06/21/17 16:33 Antibiotics) Tetracyclines Allergy Unknown RASH Verified 06/21/17 16:33 Travel Screening - Travel/Exposure Within Last 30 Days Have you traveled within the last 30 days?: No - Travel/Exposure Within Last Year Have you traveled outside the [place] in the last year?: No - Additonal Travel Details Have you been exposed to anyone with a communicable illness?: No - Travel Symptoms Symptom Screening: None Review of Systems Reviewed: No additional complaints except as noted below Constitutional: Reports: As per HPI, Weakness. Denies: Chills, Fever, Malaise, Night sweats, Weight change Eyes: Reports: As per HPI. Denies: Eye discharge, Eye pain, Photophobia, Vision change ENT: Reports: As per HPI. Denies: Congestion, Dental pain, Ear pain, Epistaxis , Hearing loss, Throat pain Respiratory: Reports: As per HPI. Denies: Cough, Dyspnea, Hemoptysis, Stridor, Wheezes Cardiovascular: Reports: As per HPI, Chest pain. Denies: Arrhythmia, Dyspnea on exertion, Edema, Murmurs, Orthopnea, Palpitations, Paroxysmal nocturnal dyspnea, Rheumatic Fever, Syncope Endocrine: Reports: As per HPI. Denies: Fatigue, Heat or cold intolerance, Polydipsia, Polyuria Gastrointestinal: Reports: As per HPI. Denies: Abdominal pain, Constipation, Diarrhea, Hematemesis, Hematochezia, Melena, Nausea, Vomiting Genitourinary: Reports: As per HPI. Denies: Abnormal menses, Discharge, Dyspareunia, Dysuria, Frequency, Hematuria, Incontinence, Retention, Urgency Musculoskeletal: Reports: As per HPI. Denies: Arthralgia, Back pain, Gout, Joint swelling, Myalgia, Neck pain Skin: Reports: As per HPI. Denies: Bruising, Change in color, Change in hair/ nails, Lesions, Pruritus, Rash Neurological: Reports: As per HPI. Denies: Abnormal gait, Confusion, Headache, Numbness, Paresthesias, Seizure, Tingling, Tremors, Vertigo, Weakness Psychiatric: Reports: As per HPI. Denies: Anxiety, Auditory hallucinations, Depression, Homicidal thoughts, Suicidal thoughts, Visual hallucinations Hematological/Lymphatic: Reports: As per HPI. Denies: Anemia, Blood Clots, Easy bleeding, Easy bruising, Swollen glands Past Medical History - SOCIAL HISTORY Smoking Status: Former smoker Alcohol Use: None Drug Use: None - RESPIRATORY Hx Respiratory Disorders: Yes Comment:: chronic allergies - CARDIOVASCULAR Hx Cardio Disorders: Yes Hx Hypertension: Yes Hx Hypotension: Yes - NEURO Hx Neuro Disorders: Yes Hx Dizziness: Yes Hx Headaches: Yes - GI Hx GI Disorders: Yes Hx Reflux: Yes Hx Nausea/Vomiting: Yes - Hx Genitourinary Disorders: Yes Hx UTI: Yes - ENDOCRINE Hx Endocrine Disorders: Yes Hx Diabetes: Yes (type 2) Hx Thyroid Disease: Yes (low) - MUSCULOSKELETAL Hx Musculoskeletal Disorders: Yes Hx Arthritis: Yes - PSYCH Hx Psych Problems: Yes Hx Depression: Yes - HEMATOLOGY/ONCOLOGY Hx Hematology/Oncology Disorders: Yes Hx Anemia: Yes Hx Bruising: Yes Hx Cancer: Yes (lymphoma non hodgkins breast cancer) Hx Chemotherapy: No Hx Radiation Therapy: Yes Hx Blood Transfusions: Yes Family Medical History Any Significant Family History?: No Hx HTN: Father Physical Exam - General General Appearance: Alert, Oriented x3, Cooperative, Mild distress - Head Head exam: Normal inspection - Eye Eye exam: Normal appearance, PERRL, EOMI Pupils: Normal accommodation - ENT ENT exam: Normal exam, Mucous membranes moist, Normal external ear exam, Normal orophraynx Ear exam: Normal external inspection. negative: External canal tenderness Nasal Exam: Normal inspection. negative: Discharge, Sinus tenderness Mouth exam: Normal external inspection, Tongue normal Teeth exam: Normal inspection. negative: Dental caries Throat exam: Normal inspection. negative: Tonsillar erythema, Tonsillar exudate - Neck Neck exam: Normal inspection, Full ROM. negative: Tenderness - Respiratory Respiratory exam: Normal lung sounds bilaterally. negative: Respiratory distress - Cardiovascular Cardiovascular Exam: Regular rate, Normal rhythm, Normal heart sounds - GI/Abdominal GI/Abdominal exam: Soft, Normal bowel sounds. negative: Tenderness - Rectal Rectal exam: Deferred - exam: Deferred - Extremities Extremities exam: Normal inspection, Full ROM, Normal capillary refill. negative: Tenderness - Back Back exam: Reports: Normal inspection, Full ROM. Denies: Muscle spasm, Rash noted, Tenderness - Neurological Neurological exam: Alert, CN II-XII intact, Normal gait, Oriented X3 - Psychiatric Psychiatric exam: Normal affect, Normal mood - Skin Skin exam: Dry, Intact, Normal color, Warm Course Vital Signs 12/04/17 12/04/17 12/04/17 20:20 21:17 22:00 Temperature 97.7 F 98.3 F Pulse Rate [ 82 74 74 Pulse Ox Probe] Respiratory 22 18 20 Rate Blood Pressure 186/84 176/85 138/106 [Left Arm] Pulse Ox 97 97 99 Medical Decision Making - Lab Data Result diagrams: 12/04/17 20:48 12/04/17 20:48 Lab Results 12/04/17 12/04/17 12/04/17 Range/Units 20:48 20:48 20:48 WBC 7.4 (4.2-12.2) K/uL RBC 4.56 (3.80-5.40) M/uL Hgb 12.9 (11.6-16.0) gm/dl Hct 37.9 (35.0-47.0) % MCV 83.1 (81-97) fl MCH 28.3 (27-33) pg MCHC 34.0 (32-36) g/dl RDW 13.6 (11.5-14.5) % Plt Count 246 (130-400) K/uL MPV 8.7 (7.4-10.4) fl Gran % 69.9 (47-80) % Lymphocytes % 21.6 (16-45) % Monocytes % 8.2 (0-9) % Eosinophils % 0.0 (0-6) % Basophils % 0.3 (0-6) % D-Dimer 0.27 (0-0.59) mg/L FEU Sodium 135 L (136-145) mmol/L Potassium 3.2 L (3.4-4.5) mmol/L Chloride 95 L (98-107) mmol/L Carbon Dioxide 25.0 (22-29) mmol/L Anion Gap 15.0 (7-16) BUN 8 (8-23) mg/dL Creatinine 0.6 (0.5-0.9) mg/dL Estimated GFR > 60 mL/min Random Glucose 188 H (74-109) mg/dL Calcium 9.8 (8.8-10.2) mg/dL Total Bilirubin 1.60 H (0.2-1.0) mg/dL AST 19 (10.0-35.0) U/L ALT 17 (<33) U/L Alkaline Phosphatase 78 (35-104) U/L Creatine Kinase 21 L (26-192) U/L Troponin T < 0.010 (0-0.010) ng/mL Total Protein 6.7 (6.6-8.7) g/dL Albumin 4.3 (4.0-5.0) g/dL Globulin 2.4 (1.4-4.8) gm/dL Albumin/Globulin Ratio 1.8 (1.1-1.8) Urine Color Urine Appearance Urine pH (5.0-8.0) Ur Specific [place] (1.002-1.030) Urine Protein (NEGATIVE) Urine Glucose (UA) (NEGATIVE) Urine Ketones (NEGATIVE) Urine Blood (NEGATIVE) Urine Nitrite (NEGATIVE) Urine Bilirubin (NEGATIVE) Urine Urobilinogen (0.20 - 1.00) E.U./dL Ur Leukocyte Esterase (NEGATIVE) Urine RBC (NONE SEEN) Urine WBC (0-2/hpf) Ur Epithelial Cells (FEW) Urine Bacteria 12/04/17 Range/Units 22:14 WBC (4.2-12.2) K/uL RBC (3.80-5.40) M/uL Hgb (11.6-16.0) gm/dl Hct (35.0-47.0) % MCV (81-97) fl MCH (27-33) pg MCHC (32-36) g/dl RDW (11.5-14.5) % Plt Count (130-400) K/uL MPV (7.4-10.4) fl Gran % (47-80) % Lymphocytes % (16-45) % Monocytes % (0-9) % Eosinophils % (0-6) % Basophils % (0-6) % D-Dimer (0-0.59) mg/L FEU Sodium (136-145) mmol/L Potassium (3.4-4.5) mmol/L Chloride (98-107) mmol/L Carbon Dioxide (22-29) mmol/L Anion Gap (7-16) BUN (8-23) mg/dL Creatinine (0.5-0.9) mg/dL Estimated GFR mL/min Random Glucose (74-109) mg/dL Calcium (8.8-10.2) mg/dL Total Bilirubin (0.2-1.0) mg/dL AST (10.0-35.0) U/L ALT (<33) U/L Alkaline Phosphatase (35-104) U/L Creatine Kinase (26-192) U/L Troponin T (0-0.010) ng/mL Total Protein (6.6-8.7) g/dL Albumin (4.0-5.0) g/dL Globulin (1.4-4.8) gm/dL Albumin/Globulin Ratio (1.1-1.8) Urine Color Yellow Urine Appearance Clear Urine pH 6.5 (5.0-8.0) Ur Specific [place] 1.010 (1.002-1.030) Urine Protein Negative (NEGATIVE) Urine Glucose (UA) Negative (NEGATIVE) Urine Ketones Negative (NEGATIVE) Urine Blood Trace-i (NEGATIVE) Urine Nitrite Negative (NEGATIVE) Urine Bilirubin Negative (NEGATIVE) Urine Urobilinogen 0.2 (0.20 - 1.00) E.U./dL Ur Leukocyte Esterase Small H (NEGATIVE) Urine RBC 0 - 2 (NONE SEEN) Urine WBC 0 - 2 (0-2/hpf) Ur Epithelial Cells 0 - 2 (FEW) Urine Bacteria None seen Disposition Disposition: Admit Clinical Impression: Dizziness Chest pain Qualifiers: Chest pain type: unspecified Qualified Code(s): R07.9 - Chest pain, unspecified Disposition: Still a Patient at [facility] Decision to Admit: Admit from ER Decision to Admit Date: 12/04/17 Decision to Admit Time: 23:10 Quality - Quality Measures Quality Measures: N/A - Blood Pressure Screening Does Patient Have Any of the Following: No Blood Pressure Classification: Hypertensive Reading Systolic Measurement: 138 Diastolic Measurement: 106 Screening for High Blood Pressure: < Pre-Hypertensive BP, F/U Documented > [ G8950] Pre-Hypertensive Follow-up Interventions: Follow-up with rescreen every year.
[2017-12-05] MEDS ORDERED: ONDANSETRON 4 MG ODT TABLET PO PRN (00:07)
[2017-12-05] MEDS ORDERED: NITROGLYCERIN 0.4MG SL TABLET #25 BTL SL PRN (00:07)
[2017-12-05] MEDS ORDERED: LEVOTHYROXINE SODIUM 50 MCG TABLET PO SCH (07:00)
--- NOTE | 2017-12-05 07:13 | RADIOLOGY REPORT ---
EXAM: CHEST, TWO VIEWS HISTORY: CHEST PAIN. TECHNIQUE: Frontal and lateral views of the chest were obtained. Comparison: 09/16/15 chest. FINDINGS: The heart size is normal. Osteopenia. Underlying COPD. No pneumothorax. Streaky opacity in the left lung base likely reflecting subsegmental atelectasis. The lungs are otherwise clear. IMPRESSION: UNDERLYING COPD. OSTEOPENIA. PROBABLE SUBSEGMENTAL ATELECTASIS LEFT LUNG BASE. JOB NUMBER: [id number] MTDD
[2017-12-05 07:50] LABS: CKMB < 1.0 ng/mL (<3.77)
[2017-12-05] MEDS ORDERED: HYDROCHLOROTHIAZIDE PO SCH (10:00)
[2017-12-05] MEDS ORDERED: LIRAGLUTIDE SQ SCH (10:00)
[2017-12-05] MEDS ORDERED: HYDROCHLOROTHIAZIDE 12.5 MG CAPSULE PO SCH (10:00)
[2017-12-05] MEDS ORDERED: POTASSIUM CHLORIDE 10 MEQ TAB PO SCH (10:00)
[2017-12-05] MEDS ORDERED: GABAPENTIN 300 MG CAPSULE PO SCH (10:00)
[2017-12-05] MEDS ORDERED: GLIPIZIDE PO SCH ×2 (10:00)
[2017-12-05] MEDS ORDERED: [UNRECOGNIZED DRUG - OTHER] PO SCH (10:00)
[2017-12-05] MEDS ORDERED: PANTOPRAZOLE SODIUM 40 MG TABLET PO SCH (10:00)
[2017-12-05] MEDS ORDERED: HYDROCHLOROTHIAZIDE 25 MG TABLET PO SCH (10:00)
[2017-12-05] MEDS ORDERED: ASPIRIN 325 MG TAB ENTERIC-COATED PO SCH (10:00)
[2017-12-05] MEDS ORDERED: LOSARTAN POTASSIUM 100 MG TABLET PO SCH (10:00)
[2017-12-05] MEDS ORDERED: METFORMIN HCL PO SCH ×2 (10:00)
[2017-12-05] MEDS ORDERED: BIFIDOBACTERIUM INFANTIS 4 MG CAPSULE PO SCH (10:00)
[2017-12-05] MEDS ORDERED: IRBESARTAN PO SCH (10:00)
[2017-12-05] MEDS ORDERED: GLIPIZIDE 5 MG TABLET PO SCH (10:00)
[2017-12-05] MEDS ORDERED: METFORMIN 500 MG TABLET PO SCH (10:00)
[2017-12-05] MEDS ORDERED: FLUTICASONE PROPIONATE 50MCG NASAL 16 GM BTL SCH (10:00)
--- NOTE | 2017-12-05 10:10 | History & Physical ---
History of Present Illness - Date of Service Date of Service for History & Physical: 12/05/17 - History of Present Illness Admitting Diagnosis: chest pain, dizziness History of Present Illness: 82yo female with CC of chest pain. She has history of HTN, T2DM, hypothyroid, arthritis, depression, GERD, allergies, Non-hodgkin lymphoma, and breast cancer. Patient presented to the ED with complaint of chest pain. It actually resolved prior to her arrival in ED. She says yesterday she had an episode of chest heaviness across her entire chest. She can't remember what she was doing at the time but doesn't think she was exerting herself. Says it was brief lasting only a minute before resolving. She did not have any associated shortness of breath, light-headedness, weakness, or nausea. she called her daughter to bring her to the ED to be checked out. While in the ED, patient had EKG that did not show any ST changes. 1st set of CE returned within normal. CXR showed no acute process. DDimer was within normal range at 0.27. Sodium and potassium were slightly low at 135 and 3.2 respectively. The rest of her labs were unremarkable. She was placed on director cardiac and admitted for serial enzymes 12/05/17- Patient states she has not had any recurrence of that chest heaviness. She denies any chest pain, SOB, upper respiratory symptoms, light-headedness, palpitations. She says she feels like her normal self. 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 She was hospitalized in December 2016 for possible stroke but was determined to be encephalopathy. She had an echo done at that point showing 60-65% EF with negative bubble study. pcp: Dr. Morales/Martha Travel Screening - Travel/Exposure Within Last 30 Days Have you traveled within the last 30 days?: No - Travel/Exposure Within Last Year Have you traveled outside the [place] in the last year?: No - Additonal Travel Details Have you been exposed to anyone with a communicable illness?: No - Travel Symptoms Symptom Screening: None Review of Systems Constitutional: Reports: As per HPI. Denies: Chills, Fever, Malaise, Night sweats, Weakness, Weight change Eyes: Reports: As per HPI. Denies: Eye discharge, Eye pain, Photophobia, Vision change ENT: Reports: As per HPI. Denies: Congestion, Dental pain, Ear pain, Epistaxis , Hearing loss, Throat pain Respiratory: Reports: As per HPI. Denies: Cough, Dyspnea, Hemoptysis, Stridor, Wheezes Cardiovascular: Reports: As per HPI. Denies: Arrhythmia, Chest pain, Dyspnea on exertion, Edema, Murmurs, Orthopnea, Palpitations, Paroxysmal nocturnal dyspnea, Rheumatic Fever, Syncope Endocrine: Reports: As per HPI. Denies: Fatigue, Heat or cold intolerance, Polydipsia, Polyuria Gastrointestinal: Reports: As per HPI. Denies: Abdominal pain, Constipation, Diarrhea, Hematemesis, Hematochezia, Melena, Nausea, Vomiting Genitourinary: Reports: As per HPI. Denies: Abnormal menses, Discharge, Dyspareunia, Dysuria, Frequency, Hematuria, Incontinence, Retention, Urgency Musculoskeletal: Reports: As per HPI. Denies: Arthralgia, Back pain, Gout, Joint swelling, Myalgia, Neck pain Skin: Reports: As per HPI. Denies: Bruising, Change in color, Change in hair/ nails, Lesions, Pruritus, Rash Neurological: Reports: As per HPI. Denies: Abnormal gait, Confusion, Headache, Numbness, Paresthesias, Seizure, Tingling, Tremors, Vertigo, Weakness Psychiatric: Reports: As per HPI. Denies: Anxiety, Auditory hallucinations, Depression, Homicidal thoughts, Suicidal thoughts, Visual hallucinations Hematological/Lymphatic: Reports: As per HPI. Denies: Anemia, Blood Clots, Easy bleeding, Easy bruising, Swollen glands Past Medical History - SOCIAL HISTORY Smoking Status: Former smoker Alcohol Use: None Drug Use: None - RESPIRATORY Hx Respiratory Disorders: Yes Comment:: chronic allergies - CARDIOVASCULAR Hx Cardio Disorders: Yes Hx Hypertension: Yes - NEURO Hx Neuro Disorders: Yes Hx Dizziness: Yes Hx Headaches: Yes - GI Hx GI Disorders: Yes Hx Reflux: Yes Hx Nausea/Vomiting: Yes - Hx Genitourinary Disorders: Yes Hx UTI: Yes - ENDOCRINE Hx Endocrine Disorders: Yes Hx Diabetes: Yes (type 2) Hx Thyroid Disease: Yes (low) - MUSCULOSKELETAL Hx Musculoskeletal Disorders: Yes Hx Arthritis: Yes - PSYCH Hx Psych Problems: Yes Hx Depression: Yes - HEMATOLOGY/ONCOLOGY Hx Hematology/Oncology Disorders: Yes Hx Anemia: Yes Hx Bruising: Yes Hx Cancer: Yes (lymphoma non hodgkins breast cancer) Hx Chemotherapy: No Hx Radiation Therapy: Yes Hx Blood Transfusions: Yes Family Medical History Any Significant Family History?: Yes Hx Alcohol Use: Father Hx Cancer: Mother Hx Heart Disease: Father Hx HTN: Father Hx Kidney Disease: Mother H&P Meds/Allergies - Allergies Allergies: Allergies Allergy/AdvReac Type Severity Reaction Status Date / Time Penicillins Allergy Unknown DIFFICULTY Verified 06/21/17 16:33 BREATHING quinine Allergy Unknown RASH Verified 06/21/17 16:33 Sulfa (Sulfonamide Allergy Unknown RASH Verified 06/21/17 16:33 Antibiotics) Tetracyclines Allergy Unknown RASH Verified 06/21/17 16:33 - Home Medications Home Medications Medication Instructions Recorded Confirmed Last Taken Liraglutide [Victoza 2-Robert] 0.6 unit SQ DAILY 12/04/17 12/04/17 Unknown Previous Rx's Medication Instructions Recorded Ondansetron [Zofran Odt] 4 mg PO Q8H PRN #20 tab.rapdis 05/24/17 - Active Medications Active Medications: Current Medications Aspirin (Ecotrin (Ec)) 325 mg PO DAILY [facility] Fluticasone Propionate (Flonase) 1 spray NA DAILY [facility] Gabapentin (Neurontin) 300 mg PO TID [facility] Glipizide (Glucotrol) 5 mg PO BID [facility] Hydrochlorothiazide (Hctz 25mg) 25 mg PO DAILY [facility] Levothyroxine Sodium (Synthroid) 50 mcg PO DAILYTHY [facility] Last Admin: 12/05/17 06:49 Dose: 50 mcg Losartan Potassium (Losartan Potassium) 100 mg PO DAILY [facility] Metformin HCl (Glucophage Ir) 500 mg PO BID [facility] Nitroglycerin (Nitrostat 0.4mg) 0.4 mg SL Q5MIN PRN PRN Reason: CHEST PAIN Non-Formulary Medication (Anastrozole [Arimidex]) 1 mg PO QHS [facility] Ondansetron HCl (Zofran Odt) 4 mg PO Q8H PRN PRN Reason: NAUSEA Pantoprazole Sodium (Protonix) 40 mg PO DAILYAC [facility] Potassium Chloride (Klor-Con) 10 meq PO TID [facility] Simvastatin (Zocor) 20 mg PO QHS [facility] Physical Exam - Vital Signs Vital Signs: Vital Signs - Last 24 Hrs Temp Pulse Pulse Pulse Resp BP Pulse Ox 12/05/17 06:15 76 16 96 12/05/17 06:00 75 16 141/75 97 12/05/17 02:00 71 18 147/80 98 12/05/17 01:08 76 12/05/17 00:00 97 F L 76 18 162/78 99 - General General Appearance: Alert, Oriented x3, Cooperative, No acute distress Limitations: No limitations - Head Head exam: Normal inspection - Eye Eye exam: Normal appearance, PERRL, EOMI Pupils: Normal accommodation - ENT ENT exam: Normal exam, Mucous membranes moist, Normal external ear exam, Normal orophraynx Ear exam: Normal external inspection. negative: External canal tenderness Nasal Exam: Normal inspection. negative: Discharge, Sinus tenderness Mouth exam: Normal external inspection, Tongue normal Teeth exam: Normal inspection. negative: Dental caries Throat exam: Normal inspection. negative: Tonsillar erythema, Tonsillar exudate - Neck Neck exam: Normal inspection, Full ROM. negative: Tenderness - Respiratory Respiratory exam: Normal lung sounds bilaterally. negative: Respiratory distress - Cardiovascular Cardiovascular Exam: Regular rate, Normal rhythm, Normal heart sounds - GI/Abdominal GI/Abdominal exam: Soft, Normal bowel sounds. negative: Tenderness - Rectal Rectal exam: Deferred - exam: Deferred - Extremities Extremities exam: Normal inspection, Full ROM, Normal capillary refill. negative: Tenderness - Back Back exam: Reports: Normal inspection, Full ROM. Denies: Muscle spasm, Rash noted, Tenderness - Neurological Neurological exam: Alert, CN II-XII intact, Normal gait, Oriented X3 - Psychiatric Psychiatric exam: Normal affect, Normal mood - Skin Skin exam: Dry, Intact, Normal color, Warm Results - Labs Result Diagrams: 12/04/17 20:48 12/04/17 20:48 Labs Last 24 Hours: Laboratory Results - last 24 hr 12/05/17 12/05/17 12/05/17 06:00 06:24 14:00 CK-MB (CK-2) < 1.0 Troponin T Cancelled < 0.010 Cancelled 12/05/17 22:00 CK-MB (CK-2) Troponin T Cancelled VTE H&P Assessment - Risk for VTE Risk for VTE: Yes Risk Level: High Risk Assessment Date: 12/05/17 Risk Assessment Time: 13:35 VTE Orders Placed or Will Be Placed: Yes Plan - Detailed Diagnosis and Plan (1) Chest pain Current Visit: Yes Status: Acute Qualifiers: Chest pain type: unspecified Qualified Code(s): R07.9 - Chest pain, unspecified Base Code: R07.9 - CHEST PAIN, UNSPECIFIED Comment: 12/05/17- resolved. Atypical chest pain that lasted less than a minute before spontaneously resolving. No associated symptoms. EKG in ED showed NSR without ischemic changes. 2 sets of CE returned wnl range. CXR showed underlying COPD and possible subsegmental atelectasis. she is not having any respiratory symptoms. [facility] reports from 2017 reviewed. She did have echo done within the past year showing EF of 60-65%. -conitnue serial enzymes for 3rd set -continuous cardiac monitoring -vitals q8H -will likely discharge home today. no cardiology here until next week. Will get her set up wtih her pcp for follow up. (2) DVT prophylaxis Current Visit: Yes Status: Acute Base Code: [id number] - Comment: 12/05/17- high risk with age and restricted mobility -will order lovenox 40mg sq daily for prophylaxis (3) Cardiopulmonary resuscitation (CPR)-only resuscitation status Current Visit: Yes Status: Acute Base Code: Z78.9 - OTHER SPECIFIED HEALTH STATUS Comment: 12/05/17- patient requests CPR resuscitation efforts only
--- NOTE | 2017-12-05 13:40 | Discharge Summary ---
Providers Discharge Summary Date: 12/05/17 Date of admission: 12/04/17 23:53 Expected Date of Discharge: 12/05/17 Attending physician: SUDHIR CHARLES Primary care physician: Ramírez Morales Physical Exam - Vital Signs Vital Signs: Vital Signs - Last 24 Hrs Temp Pulse Pulse Pulse Resp BP Pulse Ox 12/05/17 10:00 98.6 F 83 16 155/69 96 12/05/17 09:00 76 16 12/05/17 06:15 76 16 96 12/05/17 06:00 75 16 141/75 97 12/05/17 02:00 71 18 147/80 98 12/05/17 01:08 76 12/05/17 00:00 97 F L 76 18 162/78 99 - General General Appearance: Alert, Oriented x3, Cooperative, No acute distress Limitations: No limitations - Head Head exam: Normal inspection - Eye Eye exam: Normal appearance, PERRL, EOMI Pupils: Normal accommodation - ENT ENT exam: Normal exam, Mucous membranes moist, Normal external ear exam, Normal orophraynx Ear exam: Normal external inspection. negative: External canal tenderness Nasal Exam: Normal inspection. negative: Discharge, Sinus tenderness Mouth exam: Normal external inspection, Tongue normal Teeth exam: Normal inspection. negative: Dental caries Throat exam: Normal inspection. negative: Tonsillar erythema, Tonsillar exudate - Neck Neck exam: Normal inspection, Full ROM. negative: Tenderness - Respiratory Respiratory exam: Normal lung sounds bilaterally. negative: Respiratory distress - Cardiovascular Cardiovascular Exam: Regular rate, Normal rhythm, Normal heart sounds - GI/Abdominal GI/Abdominal exam: Soft, Normal bowel sounds. negative: Tenderness - Rectal Rectal exam: Deferred - exam: Deferred - Extremities Extremities exam: Normal inspection, Full ROM, Normal capillary refill. negative: Tenderness - Back Back exam: Reports: Normal inspection, Full ROM. Denies: Muscle spasm, Rash noted, Tenderness - Neurological Neurological exam: Alert, CN II-XII intact, Normal gait, Oriented X3 - Psychiatric Psychiatric exam: Normal affect, Normal mood - Skin Skin exam: Dry, Intact, Normal color, Warm Hospitalization - Hospitalization Admission Diagnosis: chest pain, dizziness - Problem List/Discharge Diagnosis (1) Chest pain Current Visit: Yes Status: Acute Discharge Diagnosis: Chest pain type: unspecified Qualified Code(s): R07.9 - Chest pain, unspecified Base Code: R07.9 - CHEST PAIN, UNSPECIFIED Comment: 12/05/17- resolved. Atypical chest pain that lasted less than a minute before spontaneously resolving. No associated symptoms. EKG in ED showed NSR without ischemic changes. 3 sets of CE returned wnl range. CXR showed underlying COPD and possible subsegmental atelectasis. she is not having any respiratory symptoms. [facility] reports from 2017 reviewed. She did have echo done within the past year showing EF of 60-65%. -will plan to discharge home today. She will follow up wtih her pcp in 7-10 days -discussed reasons to return to ED including return of chest pain, shortness of breath, light-headedness, palpitations. (2) DVT prophylaxis Current Visit: Yes Status: Acute Base Code: [id number] - Comment: 12/05/17- high risk with age and restricted mobility -will order lovenox 40mg sq daily for prophylaxis (3) Cardiopulmonary resuscitation (CPR)-only resuscitation status Current Visit: Yes Status: Acute Base Code: Z78.9 - OTHER SPECIFIED HEALTH STATUS Comment: 12/05/17- patient requests CPR resuscitation efforts only - Hospitalization Course Disposition: Home, Self-Care Hospital Course: 82yo female with CC of chest pain. She has history of HTN, T2DM, hypothyroid, arthritis, depression, GERD, allergies, Non-hodgkin lymphoma, and breast cancer. Patient presented to the ED with complaint of chest pain. It actually resolved prior to her arrival in ED. She says yesterday she had an episode of chest heaviness across her entire chest. She can't remember what she was doing at the time but doesn't think she was exerting herself. Says it was brief lasting only a minute before resolving. She did not have any associated shortness of breath, light-headedness, weakness, or nausea. she called her daughter to bring her to the ED to be checked out. While in the ED, patient had EKG that did not show any ST changes. 1st set of CE returned within normal. CXR showed no acute process. DDimer was within normal range at 0.27. Sodium and potassium were slightly low at 135 and 3.2 respectively. The rest of her labs were unremarkable. She was placed on rn plasma center and admitted for serial enzymes 12/05/17- Patient states she has not had any recurrence of that chest heaviness. She denies any chest pain, SOB, upper respiratory symptoms, light-headedness, palpitations. She says she feels like her normal self. 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 She was hospitalized in December 2016 for possible stroke but was determined to be encephalopathy. She had an echo done at that point showing 60-65% EF with negative bubble study. pcp: Dr. Morales/Martha Condition at Discharge: (2) Stable Discharge Medications - Discharge Medications Home Medications: Ambulatory Orders Desloratadine [Clarinex] 5 mg PO DAILY 03/07/14 [Last Taken 02/15/16] Fluticasone Furoate [Veramyst] 10 gm NS DAILY 03/07/14 [Last Taken 02/15/16] Gabapentin 1 tab PO TID 03/07/14 [Last Taken 02/15/16] Glipizide/Metformin HCl [Glipizide-Metformin 5-500 mg] 1 each PO TID 03/07/14 [ Last Taken 02/15/16] Irbesartan/Hydrochlorothiazide [Irbesartan-Hctz 150-12.5 mg Tb] 1 each PO DAILY 03/07/14 [Last Taken 02/15/16] Levothyroxine Sodium [Synthroid] 1 tab PO DAILY 03/07/14 [Last Taken 02/15/16] Omeprazole 1 tab PO QAM 03/07/14 [Last Taken 02/15/16] Potassium Chloride [K-Tab ER] 10 meq PO TID 03/07/14 [Last Taken 02/15/16] Simvastatin 1 tab PO QHS 03/07/14 [Last Taken 02/15/16] Folic Acid 1 mg PO DAILY 01/04/15 [Last Taken 02/15/16] Multivit with Calcium,Iron,Min [Multiple Vitamins For Women] 1 each PO DAILY 08/11 [Last Taken 02/15/16] Anastrozole [Arimidex] 1 mg PO DAILY 06/18/15 [Last Taken 02/15/16] Calcium Carb, Citrate/Vit D3 [Calcium + D3 ER Tablet] 1 each PO DAILY 11/03/15 [ Last Taken 02/15/16] Hydrochlorothiazide [Hctz] 12.5 mg PO DAILY 01/21/17 [Last Taken Unknown] Ondansetron [Zofran Odt] 4 mg PO Q8H PRN #20 tab.liyahdis 05/24/17 [Last Taken Unknown] Glipizide/Metformin HCl [Glipizide-Metformin 2.5-250 mg] 1 each PO DAILY [Last Taken Unknown] Liraglutide [Victoza 2-Robert] 0.6 unit SQ DAILY 12/04/17 [Last Taken Unknown] Discharge Plan - Discharge Instructions Activity at Discharge: Resume Usual Activities As Tolerated Diet at Discharge: Low Fat, Low Cholesterol, Low Salt Diet Additional Instructions: Follow up with your pcp in 7-10 days Resume home medications Please call with any questions or concerns Return to ED for any new or worsening concerns Quality Measures - Quality Measures Quality Measures: Advance Directives, Documentation of Current Medications in Medical Record, Elder Maltreatment Screen and Follow-Up Plan, Screening for High Blood Pressure and F/U Documented - Current Medications Quality Measure: Measure #130: Documentation of Current Medications Documentation of Current Medications: <Current Medications Documented/Reviewed> [G8427] - Blood Pressure Screening Quality Measure: Screening for High Blood Pressure and Follow-Up Documented Does Patient Have Any of the Following: Active Dx of HTN Blood Pressure Classification: Pre-Hypertensive BP Reading Systolic Measurement: 137 Diastolic Measurement: 75 Screening for High Blood Pressure: Patient Exclusion, Hx of HTN [G9744] - Advance Directives Quality Measure: Measure #47: Care Plan Advance Directives Established: Yes Advance Directives Information Provided To Patient: Already Provided Advance Directives on File: No Living Will: Yes Power of Scuba Diver: Yes Power of Scuba Diver Name: Chloe Advance Care Planning: <Care Plan/Decision Maker Documented; Discussed & Documented> [[id number]] - Elder Abuse Suspicion Index Screening: Elder Abuse Suspicion Index Screening Rely on people for bathing, dressing, shopping, banking, etc: No Prevented from getting food, clothes, medication, etc: No Made to feel shamed or threatened by someone: No Forced to sign papers or use money against will: No Feel afraid, touched in ways not wanted or hurt physically: No Poor eye contact, withdrawn, malnourished, cuts or bruises: No Screening Result: Negative result EASI Reference Information: Lottie FERNANDEZ, Lisset C, Taj D, Sofia Farley.Development and validation of a tool to assist physicians identification of elder abuse: The Elder Abuse Suspicion Index (EASI ). Journal of Elder Abuse and Neglect, 2008; 20 (3): 276-300. - Elder Maltreatment Screen Quality Measures: Elder Maltreatment Screen and Follow-Up Plan Elder Maltreatment Screen: <Negative, No Follow-Up Plan Required> [G8734]
[2017-12-05 14:49] LABS: CKMB < 1.0 ng/mL (<3.77)
[2017-12-05] MEDS ORDERED: ANASTROZOLE 1 MG PO SCH (22:00)
[2017-12-05] MEDS ORDERED: SIMVASTATIN 20 MG TABLET PO SCH (22:00)
== END 2017-12-05 16:35 | disposition home or self-care (01) ==
LOC: ER 20:12 → MEDSURG 23:53
PROVIDERS: ADMIT Internal Medicine; ATTEND Internal Medicine
DX: R07.9 Chest pain, unspecified (principal); C85.80 Other specified types of non-Hodgkin lymphoma, unspecified site; Z78.9 Other specified health status; I10 Essential (primary) hypertension; E11.9 Type 2 diabetes mellitus without complications; E03.9 Hypothyroidism, unspecified; Z85.9 Personal history of malignant neoplasm, unspecified; Z87.891 Personal history of nicotine dependence; K21.9 Gastro-esophageal reflux disease without esophagitis
CPT/HCPCS: 99285 ×2; 96374; 82550; 85025; 82553; 80053; 81001; 84484 ×2; 85379; 71046; 93005 ×2; 93010 ×2; G0378 ×2; J2405; 96375; 99220

== ENCOUNTER 2018-04-03 18:33 | Emergency (ER) | payer MEDICARE, OTHER ==
--- NOTE | 2018-04-03 18:50 | Emergency Department Record ---
History of Present Illness - General Chief complaint: Hypogylcemia Stated complaint: LOW BLOOD SUGAR Time Seen by Provider: 04/03/18 18:48 Source: Patient Mode of Arrival: Ambulatory Limitations: No limitations - History of Present Illness Initial comments: The patient is here due to feeling slightly weak and unsteady an hour ago. She took her blood sugar and it was 66 so she felt like her blood sugar was low. She then ate a piece of candy and felt better. Now she felt she needed to be seen due to the low blood sugar. She had dental work done this AM and has not been able to eat normally but has been taking her diabetes medicine normally. MD Complaint: Generalized weakness Onset/Timin -: Minutes(s) Location: Generalized Improves with: Other Worsens with: None Context: Other - [place] Coma Scale Eye Response: (4) Open spontaneously Motor Response: (6) Obeys commands Verbal Response: (5) Oriented Joyce Total: 15 - Related Data Allergies Allergy/AdvReac Type Severity Reaction Status Date / Time Penicillins Allergy Unknown DIFFICULTY Verified 04/03/18 18:52 BREATHING quinine Allergy Unknown RASH Verified 04/03/18 18:52 Sulfa (Sulfonamide Allergy Unknown RASH Verified 04/03/18 18:52 Antibiotics) Tetracyclines Allergy Unknown RASH Verified 04/03/18 18:52 Travel Screening - Travel/Exposure Within Last 30 Days Have you traveled within the last 30 days?: No - Travel/Exposure Within Last Year Have you traveled outside the [place] in the last year?: No - Additonal Travel Details Have you been exposed to anyone with a communicable illness?: No Review of Systems Constitutional: Denies: Chills, Fever Past Medical History - SOCIAL HISTORY Smoking Status: Former smoker Alcohol Use: None Drug Use: None - RESPIRATORY Hx Respiratory Disorders: Yes Comment:: chronic allergies - CARDIOVASCULAR Hx Cardio Disorders: Yes Hx Hypotension: Yes - NEURO Hx Neuro Disorders: Yes Hx Dizziness: Yes Hx Headaches: Yes - GI Hx GI Disorders: Yes Hx Reflux: Yes Hx Nausea/Vomiting: Yes - Hx Genitourinary Disorders: Yes Hx UTI: Yes - ENDOCRINE Hx Endocrine Disorders: Yes Hx Diabetes: Yes (type 2) Hx Thyroid Disease: Yes (low) - MUSCULOSKELETAL Hx Musculoskeletal Disorders: Yes Hx Arthritis: Yes - PSYCH Hx Psych Problems: Yes Hx Depression: Yes - HEMATOLOGY/ONCOLOGY Hx Hematology/Oncology Disorders: Yes Hx Anemia: Yes Hx Bruising: Yes Hx Cancer: Yes (lymphoma non hodgkins breast cancer) Hx Chemotherapy: No Hx Radiation Therapy: Yes Hx Blood Transfusions: Yes Family Medical History Any Significant Family History?: No Hx Alcohol Use: Father Hx Heart Disease: Father Physical Exam - General General Appearance: Alert, Oriented x3, Cooperative, No acute distress - Head Head exam: Atraumatic, Normocephalic, Normal inspection - Eye Eye exam: Normal appearance, PERRL, EOMI - ENT Throat exam: Normal inspection. negative: Tonsillar erythema, Tonsillar exudate - Neck Neck exam: Normal inspection, Full ROM. negative: Tenderness - Respiratory Respiratory exam: Normal lung sounds bilaterally. negative: Respiratory distress - Cardiovascular Cardiovascular Exam: Regular rate, Normal rhythm, Normal heart sounds - GI/Abdominal GI/Abdominal exam: Soft, Normal bowel sounds. negative: Tenderness - Extremities Extremities exam: Normal inspection, Full ROM, Normal capillary refill. negative: Tenderness - Neurological Neurological exam: Alert, Normal gait, Oriented X3. negative: Abnormal gait, Motor sensory deficit Course Vital Signs 04/03/18 18:43 Temperature 97.5 F L Pulse Rate 81 Respiratory 18 Rate Blood Pressure 143/83 Pulse Ox 98 - Reevaluation(s) Reevaluation #1: The patient is doing very well at this time. She feels normal and is up ambulating normally with no ataxia or dizziness. She feels back to normal. Her accucheck was normal. I explained to her that she should cut back on her diabetes medicine until she is eating normally. 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 Return to the ER for any worsening symptoms. Forms: Patient Portal Access Time of Disposition: 19:34 Quality - Quality Measures Quality Measures: N/A - Blood Pressure Screening View Details: Yes Does Patient Have Any of the Following: No Blood Pressure Classification: Pre-Hypertensive BP Reading Systolic Measurement: 143 Diastolic Measurement: 83 Screening for High Blood Pressure: < Pre-Hypertensive BP, F/U Documented > [ G8950] Pre-Hypertensive Follow-up Interventions: Referral to alternative/primary care provider.
== END 2018-04-03 19:39 | disposition home or self-care (01) ==
LOC: ER 18:33
DX: E11.649 Type 2 diabetes mellitus with hypoglycemia without coma (principal); R53.1 Weakness; Z87.891 Personal history of nicotine dependence; Z79.4 Long term (current) use of insulin
CPT/HCPCS: 36416; 82948; 99283